=== PATIENT | female | born 1965 | race American Indian/Alaskan Native ===

== ENCOUNTER 2021-09-06 16:18 | Emergency (ER) | payer SELFPAY ==
[2021-09-06 20:16] VITALS: BP 183/89
== END 2021-09-08 09:34 | disposition left against medical advice (07) ==
LOC: ED 16:18
DX: I10 Essential (primary) hypertension (principal); Z53.21 Procedure and treatment not carried out due to patient leaving prior to being seen by health care provider

== ENCOUNTER 2021-09-09 09:35 | Emergency (ER) | payer OTHER ==
--- NOTE | 2021-09-09 10:57 | Event Note ---
ED Screening Note ED Screening Note: 1 w hx of inc bp when her bp spikes she has r sided weakness last happened overnight she called her pcp at [facility] and they told her to go to ER neuro intact now came to er 2 nights ago but left because of wait PMH htn hlpd obese fam hx brain aneurysm prior addict- clean 20 y post menopausal psh none rx statin losaran hctz mom dec sah dad alive- sz/htn This initial assessment/diagnostic orders/clinical plan/treatment(s) is/are subject to change based on patients health status, clinical progression and re- assessment by fellow clinical providers in the ED. Further treatment and workup at subsequent clinical providers discretion. Patient/guardian urged not to elope from the ED as their condition may be serious if not clinically assessed and managed. Initial orders include: uncontrolled htn ro tia
[2021-09-09 12:11] LABS: Basophils % (Auto) 0.8 % (0.0-1.8); Eosinophils % (Auto) 0.8 % (0.0-4.3); Hematocrit 43.2 % (30.3-42.9); Hemoglobin 15.4 gm/dl (10.1-14.3); Lymphocytes # (Auto) 1.5 K/mm3 (1.2-5.4); Lymphocytes % (Auto) 32.7 % (13.4-35.0); Mean Corpuscular HGB Conc 36 % (30-34); Mean Corpuscular Volume 81 fl (79-97); Monocytes # (Auto) 0.3 K/mm3 (0.0-0.8); Red Blood Count 5.35 M/mm3 (3.65-5.03); Red Cell Distribution Width 13.7 % (13.2-15.2)
--- NOTE | 2021-09-09 12:11 | Emergency Department Report ---
ED General Adult HPI - General Chief complaint: High BP Stated complaint: HBP Time Seen by Provider: 09/09/21 10:57 Source: patient Mode of arrival: Ambulatory Limitations: No Limitations - History of Present Illness Initial comments: Patient is 56 years old female with history of hypertension. Patient is currently taking losartan/hydrochlorthiazide 50/25 mg. Patient stated that she is compliant with her medication but she does not check her blood pressure frequently. Patient presented to the ER for evaluation of high blood pressure for the last few days. Patient stated that she was told by her primary care physician to the ER for further management. Patient stated that when her blood pressure elevated she will have some weakness and numbness and neck pain. Patient today her blood pressure is 154/72. Patient denying any headache, neck pain, focal weakness, numbness or tingling sensation. She also denied any ataxia or blurry vision. Patient stroke score is 0. -: days(s) Consistency: now resolved Associated Symptoms: denies other symptoms Treatments Prior to Arrival: none - Related Data Allergies Allergy/AdvReac Type Severity Reaction Status Date / Time No Known Allergies Allergy Unverified 09/06/21 20:26 ED Review of Systems ROS: Stated complaint: HBP Other details as noted in HPI Comment: All other systems reviewed and negative Constitutional: denies: chills, fever Respiratory: denies: cough, shortness of breath, SOB with exertion, SOB at rest Cardiovascular: denies: chest pain, palpitations Gastrointestinal: denies: abdominal pain, nausea, vomiting Musculoskeletal: denies: back pain Neurological: denies: headache, weakness, numbness, paresthesias, confusion, abnormal gait ED Past Medical Hx - Past Medical History Hx Hypertension: Yes Hx Asthma: Yes Additional medical history: High Cholesterol - Social History Smoking Status: Never Smoker ED Physical Exam - General Limitations: No Limitations General appearance: alert, in no apparent distress - Head Head exam: Present: atraumatic, normocephalic, normal inspection - Eye Eye exam: Present: normal appearance, PERRL - ENT ENT exam: Present: normal exam, normal orophraynx, mucous membranes moist - Neck Neck exam: Present: normal inspection, full ROM. Absent: tenderness, meningismus - Respiratory Respiratory exam: Present: normal lung sounds bilaterally - Cardiovascular Cardiovascular Exam: Present: regular rate, normal rhythm, normal heart sounds - GI/Abdominal GI/Abdominal exam: Present: soft, normal bowel sounds. Absent: distended, tenderness, guarding, rebound, rigid, organomegaly, mass, bruit, pulsatile mass, hernia - Extremities Exam Extremities exam: Present: normal inspection, full ROM, normal capillary refill. Absent: tenderness - Back Exam Back exam: Present: normal inspection, full ROM. Absent: CVA tenderness (R), CVA tenderness (L) - Neurological Exam Neurological exam: Present: alert, oriented X3, CN II-XII intact, normal gait, reflexes normal. Absent: motor sensory deficit - Psychiatric Psychiatric exam: Present: normal mood - Skin Skin exam: Present: warm, intact, normal color ED Course Vital Signs 09/09/21 10:28 Temperature 98.8 F Pulse Rate 93 H Respiratory 18 Rate Blood Pressure 154/70 O2 Sat by Pulse 95 Oximetry ED Medical Decision Making - Lab Data Result diagrams: 09/09/21 11:52 09/09/21 11:52 - Medical Decision Making Patient is 56 years old female with history of hypertension. Patient is currently taking losartan/hydrochlorthiazide 50/25 mg. Patient stated that she is compliant with her medication but she does not check her blood pressure frequently. Patient presented to the ER for evaluation of high blood pressure for the last few days. Patient stated that she was told by her primary care physician to the ER for further management. Patient stated that when her blood pressure elevated she will have some weakness and numbness and neck pain. Patient today her blood pressure is 154/72. Patient denying any headache, neck pain, focal weakness, numbness or tingling sensation. She also denied any ataxia or blurry vision. Patient stroke score is 0. Patient blood pressure remained stable in the ER. Labs reviewed and is unremarkable. Patient showed no clinical evidence of a stroke. Her previous symptoms that she mentioned is not consistent even with TIA. I think this is most likely related to malignant hypertension however patient strongly advised to follow-up with her primary care physician for close follow-up and monitoring. Patient stated that she has an appointment tomorrow. Patient advised to return to the ER if she develop any new symptoms. Critical care attestation.: If time is entered above; I have spent that time in minutes in the direct care of this critically ill patient, excluding procedure time. ED Disposition Clinical Impression: Malignant hypertension Disposition: 01 HOME / SELF CARE / HOMELESS Is pt being admited?: No Condition: Stable Instructions: Hypertension (ED), Hypertension, Adult, [id number] Referrals: BLUE MOELLER MD [Primary Care Provider] - 3-5 Days
[2021-09-09 12:36] LABS: Alanine Aminotransferase 19 units/L (7-56); Albumin 4.8 g/dL (3.9-5); Blood Urea Nitrogen 8 mg/dL (7-17); Calcium 9.3 mg/dL (8.4-10.2); Hemolysis Index 102
[2021-09-09 12:39] LABS: BUN/Creatinine Ratio 11
[2021-09-09 14:34] LABS: Platelet Count 290 K/mm3 (140-440)
[2021-09-09] MEDS ORDERED: cloNIDine 0.1 MG TAB PO ONE (15:04)
[2021-09-09 15:39] VITALS: BP 180/100
== END 2021-09-09 15:45 | disposition home or self-care (01) ==
LOC: ED 09:35
DX: I10 Essential (primary) hypertension (principal); J45.909 Unspecified asthma, uncomplicated
CPT/HCPCS: 36415; 80053; 84484; 85025; 99283